=== PATIENT | female | born 1950 | race Caucasian/White ===

== ENCOUNTER → 2020-12-25 | Outpatient (CLI) | payer MEDICARE ==
[~2020-12-25] MED LIST: BENA20TA6 PO; LEVO25TA5 PO; NAPR-885 PO; SIMV5TAB12 PO
--- NOTE | 2020-12-25 14:48 | REP ---
INDICATION: PAIN COMPARISON: None. TECHNIQUE: Two views right hip. FINDINGS: There is no evidence of acute fracture, dislocation, or intrinsic bone disease.I do not see significant arthritic change at the hip joint. IMPRESSION: Negative right hip series. <Electronically signed by Umang Marina > 12/25/20 [id number]
== END ==
LOC: M WUC 14:19
PROVIDERS: ATTEND Nurse Practitioner Adult Health
DX: M25.551 Pain in right hip (principal)

== ENCOUNTER → 2021-01-04 | Outpatient (CLI) | payer MEDICARE ==
--- NOTE | 2021-01-04 10:43 | REP ---
INDICATION: RIGHT LOWER QUADRANT PAIN. COMPARISON: None. TECHNIQUE: Single AP view of the pelvis. FINDINGS: Skeletal structures and joint spaces are relatively age-appropriate and without obvious acute pathology by radiographic evaluation. No acute fracture or dislocation. Surrounding soft tissues are normal. Phleboliths noted in the left hemipelvis. IMPRESSION: Normal age-appropriate pelvic radiograph. <Electronically signed by Patrick Stratton > 01/04/21 1034
--- NOTE | 2021-01-04 10:44 | REP ---
INDICATION: RIGHT LOWER QUADRANT PAIN COMPARISON: None. TECHNIQUE: AP, angled and lateral views of the sacrum and coccyx FINDINGS: Sacrum and coccyx appear relatively age-appropriate. No obvious acute or definite healed injury. Surrounding soft tissues are unremarkable. IMPRESSION: Relatively age-appropriate examination. No obvious pathology by radiographic evaluation. <Electronically signed by Patrick Stratton > 01/04/21 1042
--- NOTE | 2021-01-04 10:45 | REP ---
INDICATION: RIGHT LOWER QUADRANT PAIN COMPARISON: None. TECHNIQUE: AP, lateral, bilateral oblique, and coned-down views of the lumbar spine. FINDINGS: Alignment and lordosis maintained. Vertebral bodies are intact. No acute fracture/compression injury or subluxation. Endplate sclerosis with mild disc space narrowing and osteophytosis noted throughout the visualized lower thoracic and lumbar spine. Disc bulge and facet hypertrophy also suspected at the L5-S1 level. IMPRESSION: Moderate multilevel degenerative changes. No acute fracture/compression injury or subluxation. <Electronically signed by Patrick Stratton > 01/04/21 1048
== END ==
LOC: M RAD 09:50
PROVIDERS: ATTEND Internal Medicine
DX: R10.31 Right lower quadrant pain (principal); M51.37 Other intervertebral disc degeneration, lumbosacral region

== ENCOUNTER → 2021-07-04 | Outpatient (CLI) | payer MEDICARE | LOC: M LABSMTC 11:49 | PROVIDERS: ATTEND Family Medicine | DX: Z20.822 Contact with and (suspected) exposure to COVID-19 (principal) | CPT/HCPCS: C9803; U0003 ==

== ENCOUNTER → 2023-03-30 | Outpatient (REF) | payer MEDICARE ==
[2023-03-30 12:41] LABS: APPEARANCE, URINE CLEAR (CLEAR); BACTERIA, URINE AUTO 1+ (NEGATIVE); BILIRUBIN, URINE AUTO NEGATIVE (NEGATIVE); BLOOD, URINE BLOOD NEGATIVE (NEGATIVE); COLOR, URINE YELLOW (YELLOW); GLUCOSE, URINE (UA) AUTO NEGATIVE (NEGATIVE); KETONE, URINE AUTO NEGATIVE (NEGATIVE); LEUKOCYTE ESTERASE, URINE AUTO TRACE (NEGATIVE); MUCUS, URINE SMALL (NEGATIVE); NITRITE, URINE AUTO NEGATIVE (NEGATIVE); PROTEIN, URINE AUTO NEGATIVE (NEGATIVE); RBC, URINE AUTO 1 /HPF (0-3); SPECIFIC GRAVITY URINE AUTO 1.015 (1.002-1.035); SQUAMOUS EPITHELIAL CELL UR AU 2 /HPF (0-6); UROBILINOGEN, URINE AUTO 0.2 mg/dL (0.0-2.0); WBC, URINE AUTO 1 /HPF (0-3)
== END ==
LOC: M LAB REF 12:01
PROVIDERS: ATTEND Internal Medicine
DX: N32.81 Overactive bladder (principal)

== ENCOUNTER → 2024-06-08 | Outpatient (CLI) | payer MEDICARE | LOC: M CARPUL 09:04 | PROVIDERS: ATTEND Nurse Practitioner Adult Health | DX: R01.1 Cardiac murmur, unspecified (principal) ==

== ENCOUNTER → 2024-09-23 | Outpatient (CLI) | payer OTHER, MEDICARE ==
[2024-09-23 11:21] LABS: BASO # 0.1 10^3/uL (0.0-0.2); BASO % 1.1 % (0.0-1.0); EOS # 0.1 10^3/uL (0.0-0.5); EOS % 2.5 % (0.0-3.0); HEMATOCRIT 44.7 % (36.0-47.0); HEMOGLOBIN 15.1 g/dl (12.0-15.5); LYMPH # 1.5 10^3/uL (1.5-5.0); MEAN CORPUSCULAR HEMOGLOBIN 29.5 pg (27.0-33.0); MEAN CORPUSCULAR HGB CONC 33.8 g/dl (32.0-36.5); MEAN CORPUSCULAR VOLUME 87.3 fl (80.0-96.0); MONO # 0.5 10^3/uL (0.0-0.8); MONO % 8.4 % (2.0-8.0); NEUTROPHILS # 3.4 10^3/uL (1.5-8.5); NEUTROPHILS % 61.6 % (36.0-66.0); PLATELET COUNT, AUTOMATED 226 10^3/uL (150-450); RED BLOOD COUNT 5.12 10^6/uL (4.00-5.40); WHITE BLOOD COUNT 5.6 10^3/uL (4.0-10.0)
[2024-09-23 11:43] LABS: ALBUMIN 4.1 G/DL (3.2-5.2); ALKALINE PHOSPHATASE 74 U/L (35-104); ALT/SGPT 33 U/L (7.0-40); AST/SGOT 23 U/L (<34); BILIRUBIN,TOTAL 0.7 MG/DL (0.3-1.2); BLOOD UREA NITROGEN 17 MG/DL (9-23); CARBON DIOXIDE LEVEL 31 MMOL/L (20-31); CHLORIDE LEVEL 101 MMOL/L (98-107); CREATININE FOR GFR 0.77 MG/DL (0.55-1.30); GLOMERULAR FILTRATION RATE > 60.0 (>39); GLUCOSE, FASTING 121 MG/DL (74-106); IRON (FE) 121 UG/DL (50-170); POTASSIUM SERUM 4.1 MMOL/L (3.5-5.1); SODIUM LEVEL 139 MMOL/L (136-145); TOTAL PROTEIN 7.5 G/DL (5.7-8.2)
[2024-09-23 11:44] LABS: PERCENT SATURATION 32.1 % (13.2-45.0); TOTAL IRON BINDING CAPACITY 377 UG/DL (250-425)
[2024-09-23 11:45] LABS: FERRITIN 143.7 NG/ML (7.3-270.7)
== END ==
LOC: M LAB 10:13
PROVIDERS: ATTEND Orthopaedic Surgery
DX: Z01.818 Encounter for other preprocedural examination (principal)

== ENCOUNTER 2025-05-26 20:44 | Emergency (ER) | payer MEDICARE, OTHER ==
[~2025-05-26] VITALS: Ht 162.6 cm; Wt 100.0 kg
[2025-05-26 21:19] LABS: BASO # 0.1 10^3/uL (0.0-0.2); BASO % 0.8 % (0.0-1.0); EOS # 0.2 10^3/uL (0.0-0.5); EOS % 2.8 % (0.0-3.0); LYMPH # 2.9 10^3/uL (1.5-5.0); LYMPH % 39.8 % (24.0-44.0); MONO # 0.8 10^3/uL (0.0-0.8); MONO % 11.1 % (2.0-8.0); NEUTROPHILS # 3.3 10^3/uL (1.5-8.5); NEUTROPHILS % 45.2 % (36.0-66.0); PLATELET COUNT, AUTOMATED 228 10^3/uL (150-450)
[2025-05-26 21:43] LABS: CK-MB VALUE MASS 1.1 NG/ML (<3.6)
[2025-05-26 21:45] LABS: CALCIUM LEVEL 9.8 MG/DL (8.3-10.6); CARBON DIOXIDE LEVEL 30.0 MMOL/L (20-31); CHLORIDE LEVEL 100.0 MMOL/L (98-107); CREATININE FOR GFR 1.0 MG/DL (0.55-1.30); GLOMERULAR FILTRATION RATE 58.0 (>39); MAGNESIUM LEVEL 2.3 MG/DL (1.8-2.4); POTASSIUM SERUM 4.2 MMOL/L (3.5-5.1); SODIUM LEVEL 139.0 MMOL/L (136-145)
[2025-05-26 21:47] LABS: FREE T4 1.36 NG/DL (0.89-1.76)
[2025-05-26 21:50] LABS: CPK CREATINE PHOSPHOKINASE 56.0 U/L (34-145); MB/CK RELATIVE INDEX 1.96 (< OR =4)
[2025-05-26 22:54] LABS: CPK CREATINE PHOSPHOKINASE 39.0 U/L (34-145)
[2025-05-26 23:28] LABS: CK-MB VALUE MASS 1.0 NG/ML (<3.6); MB/CK RELATIVE INDEX 2.56 (< OR =4)
[2025-05-26 23:59] VITALS: BP 164/72; TEMP 96.7; O2SAT 97
[2025-05-30 19:02] LABS: LYME TOTAL ANTIBODY CIA <= 0.90 Index (<=0.90)
== END 2025-05-27 00:01 | disposition short-term general hospital (02) ==
LOC: M ED 20:44
DX: I44.1 Atrioventricular block, second degree (principal); I10 Essential (primary) hypertension; E78.5 Hyperlipidemia, unspecified; Z96.659 Presence of unspecified artificial knee joint; Z96.611 Presence of right artificial shoulder joint; Z79.899 Other long term (current) drug therapy; Z88.1 Allergy status to other antibiotic agents

== ENCOUNTER → 2025-07-07 | Outpatient (REF) | payer MEDICARE, OTHER ==
[2025-07-11 14:26] LABS: BORRELIA SPECIES DNA NOT DETECTED (NOT DETECT)
[2025-07-11 20:14] LABS: LYME TOTAL ANTIBODY CIA <= 0.90 Index (<=0.90)
== END ==
LOC: M LAB REF 14:49
PROVIDERS: ATTEND Internal Medicine
DX: Z11.59 Encounter for screening for other viral diseases (principal)